=== PATIENT | female | born 1960 | race Caucasian/White ===

== ENCOUNTER 2019-11-07 00:40 | Emergency (ER) | payer OTHER ==
[~2019-11-07] VITALS: Ht 160 cm; Wt 49.0 kg
[2019-11-07 00:53] VITALS: Ht 160 cm; Wt 49.0 kg
[2019-11-07 01:22] VITALS: BP 121/80
== END 2019-11-07 01:22 | disposition left against medical advice (07) ==
LOC: ED 00:40
DX: Z53.21 Procedure and treatment not carried out due to patient leaving prior to being seen by health care provider (principal)